=== PATIENT | female | born 1975 | race Caucasian/White ===

== ENCOUNTER 2023-06-28 11:02 | Emergency (ER) | payer SELFPAY ==
[2023-06-28 11:37] VITALS: BP 163/100; PULSE 98; RESP 16; TEMP 37.3; O2SAT 98; BMI 32.9
--- NOTE | 2023-06-28 11:39 | ED_ITS ---
HPI - General Adult General Chief complaint: Neck Pain/Injury Stated complaint: Neck pain Time Seen by Provider: 06/28/23 12:52 Source: patient, RN notes reviewed and old records reviewed Mode of arrival: ambulatory History of Present Illness HPI narrative: 47-year-old female with a past medical history of cervical spinal fusion presenting to the ED complaining of intermittent diffuse myalgias/shooting pain from head to toe x months. Describes patient as intermittent electrical shocks. Has been taking Tylenol and using THC without relief. States recently moved from [place] trying to establish care/insurance and PCPs in this area. Denies recent injury/trauma/fall, headache, weakness, numbness, incontinence/retention, CP/SOB, abdominal pain. Onset (ago): month(s) Related Data Allergies Allergy/AdvReac Type Severity Reaction Status Date / Time clindamycin Allergy Anaphylaxis Verified 06/28/23 11:36 erythromycin base Allergy Anaphylaxis Verified 06/28/23 11:36 morphine Allergy Anaphylaxis Verified 06/28/23 11:36 Penicillins Allergy Hives Verified 06/28/23 11:36 Review of Systems Review of Systems: Constitutional: No Fever, No Chills ENT/Mouth: No Ear Pain, No Nasal Congestion, No Sinus Pain, No Hoarseness, No sore throat, No Rhinorrhea, No Swallowing Difficulty Cardiovascular: No Chest Pain, No SOB Respiratory: No Cough, No Sputum, No Wheezing Gastrointestinal: No Nausea, No Vomiting, No Diarrhea, No Constipation, No Abdominal pain Genitourinary: No Dysuria, No Hematuria, No Urinary Incontinence/retention, No Flank Pain Musculoskeletal: No joint pain, + Myalgias, No Joint Swelling Skin: No Skin Lesions, No rash Neuro: No Weakness, No Numbness, + Paresthesias Yes all other systems are reviewed and are negative Constitutional: Constitutional: Reports as per HPI Neurologic: Denies Abnormal speech present [facility] Past Medical History Attestation statement: The following information was validated with the patient. Source: old records reviewed Social History Social History Advance Directives: No Physical Exam ED Vital Signs: Vital Signs - 24 hr 06/28/23 11:37 Temperature 99.2 F Pulse Rate 98 Respiratory Rate 16 Blood Pressure 163/100 H Pulse Oximetry 98 Oxygen Delivery Method Room Air BMI result Body Mass Index 32.9 Const General: cooperative, healthy appearing, no acute distress, alert and awake Orientation/consciousness: patient oriented x3 Limitations: no limitations HENMT Head: Yes normal to inspection and Yes atraumatic Ears: hearing grossly normal bilaterally General nose exam: Normal external nose present Face and sinus: Yes normal facial exam Throat: Yes posterior oropharynx normal, Yes tonsils normal and Yes uvula midline Eyes General: appearance normal, both eyes and all related structures Pupils: Equal, round and reactive pupils present EOM: EOMs intact bilaterally Neck Neck: Yes normal visual inspection, Yes no meningeal signs, No anterior neck swelling and No torticollis Resp Effort & Inspection: normal respiratory effort and no respiratory distress Auscultation: clear to auscultation bilaterally Cardio Rate: regular rate Heart sounds: S1 normal heart sound present and S2 normal heart sound present GI Inspection: Yes normal to inspection Palpation (GI): Soft to palpation, nontender, no guarding and not rigid General: Yes no CVA tenderness Back/Spine/Pelvis Other: No midline cervical/thoracic/lumbar spinous tenderness/step-off or deformity. + diffuse paraspinal/MSK cervical and back tenderness to palpation. No erythema/ecchymosis or rashes. Back: no CVA tenderness Skin Rashes: no rashes Wounds: no wounds Neuro Other: Strength intact throughout. No saddle anesthesia. Sensation intact to light touch. Neurovascular intact distally General: patient oriented x3, gait normal, tone normal, moves all extremities, no meningeal signs, no focal motor deficits and CN's II-XI intact bilaterally Cranial nerves: Yes CN's II-XII intact bilaterally and Yes Equal, round and reactive pupils present Cognition (Neuro): normal cognition Speech: No Abnormal speech present Gait exam (Neuro): Normal gait present Motor exam (neuro): 5/5 motor strength present throughout Extrem General: Yes normal to inspection Course Course Course Narrative: This is an RME: Additional HPI, ROS, PE not included below will be deferred to primary provider. This is a [id number], hx of pituitary tumor and gastric bypass, presenting to the emergency department with complaints of shooting pain up into head and down her entire back. She has had these symptoms for the last 3 weeks but over the last several days the symptoms have worsened. Patient has exquisite TTP throughout entire neck and spine. She is otherwise feeling well, no headaches, fevers, chills. Has been taking tylenol without any relief. Plan: Basic labs, further eval in main ER -1440--leukopenic and anemic > patient reports baseline anemia has never required transfusion however has been discussed in the past. Denies any active bleeding. States used to give herself injections for this. -patient became very upset when talking about results, requesting to see MD due to continued pain. Case discussed with Dr. Medrano who spoke with and evaluated patient, patient stated nothing works her and she is allergic to everything except for Dilaudid. Dr. Medrano agreeable to order 2 mg of p.o. Dilaudid in the emergency department, however will not be discharging patient with pain prescription. Will refer to pain management and neurology as previously discussed. Patient is still not happy with plan. Pain x months not an emeka cation for opiate use which was discussed Results discussed with patient including worrisome signs and symptoms and strict return precautions, and when to return to the emergency department. They ve rbalized understanding and feel safe for discharge at this time. Medications Administered Discontinued Medications Generic Name Dose Route Start Last Admin Trade Name Freq PRN Reason Stop Dose Admin Cyclobenzaprine HCl 10 mg 06/28/23 13:38 06/28/23 13:50 Cyclobenzaprine Hcl 10 Mg Tablet PO 06/28/23 13:39 10 mg ONCE ONE Administration Hydromorphone HCl 2 mg 06/28/23 14:57 06/28/23 15:08 Hydromorphone Hcl 2 Mg Tablet PO 06/28/23 14:58 2 mg ONCE ONE Administration Ketorolac Tromethamine 30 mg 06/28/23 13:38 06/28/23 13:51 Ketorolac Tromethamine 30 Mg/Ml Vial IM 06/28/23 13:39 30 mg ONCE ONE Administration Medical Decision Making Medical Decision Making MDM Narrative: 47-year-old female with a past medical history of cervical spinal fusion presenting to the ED complaining of intermittent diffuse myalgias/shooting pain from head to toe x months. On exam hypertensive, NAD, nontoxic appearing, no midline spinous tenderness through or red flag symptoms, ambulating with steady gait. No focal neuro deficits. No evidence of trauma. Concern for diffuse myalgias/paresthesia as vs MSK pain/strain vs neuropathy/radiculopathy. Unlikely ICH/CAH, meningitis/encephalitis, cauda equina/cord compression, epidural abscess. Rule metabolic abnormalities. Lower suspicion for MS Plan: Labs ordered in triage, pain control Please refer to course for remaining clinical decision making, interpretation of labs/imaging results, and discussions with consultants and/or family members. Differential Diagnosis Differential Diagnoses: The differential diagnosis associated with the presentation includes As above Admission/Observation Consideration of admission/observation: Escalation of care including admission/observation considered Lab Data MDM Lab Attestation statement: I reviewed the patient's lab results. 06/28/23 12:01 Labs: Lab Results 06/28/23 06/28/23 06/28/23 Range/Units 12:01 13:25 13:25 WBC 2.7 L (4.8-10.8) X10*3/uL RBC 4.29 (4.20-5.50) X10*6/uL Hgb 8.7 L (12.0-16.0) g/dl Hct 31.0 L (37.0-47.0) % MCV 72.3 L (80.0-98.0) fL MCH 20.3 L (27.0-33.0) pg MCHC 28.1 L (31.0-35.0) g/dl RDW 19.9 H (11.0-16.0) % Plt Count 383 (160-400) X10*3/uL MPV 9.8 (9.4-12.3) fL Immature Gran % (Auto) 0.4 (0.0-0.4) % Neut % (Auto) 61.6 (45-73) % Lymph % (Auto) 28.2 (20-40) % [place] % (Auto) 7.3 (2-11) % Eos % (Auto) 1.8 (0-4) % Baso % (Auto) 0.7 (0-2) % Lymph # (Auto) 0.8 L (1.2-4.9) X10*3/uL [place] # (Auto) 0.2 (0.1-1.2) X10*3/uL Eos # (Auto) 0.1 (0.0-0.4) X10*3/uL Baso # (Auto) 0.0 (0.0-0.2) X10*3/uL Abs Immat Gran (auto) 0.01 (0.00-0.03) X10*3/uL Absolute Neuts (auto) 1.7 L (2.0-8.3) x10*3/uL Absolute Nucleated RBC 0.000 (0.0-0.012) X10*3/uL Nucleated RBC % (auto) 0.0 (0.0-0.2) /100WBC ESR 7 (0-20) MM/HR Sodium 142 (135-145) mmol/L Potassium 3.7 (3.3-5.1) mmol/L Chloride 109 H (96-108) mmol/L Carbon Dioxide 25 (22-29) mmol/L Anion Gap 12 (12-20) BUN 9 (9-16) mg/dL Creatinine 0.70 (0.5-1.4) mg/dL Estim Creat Clear Calc 98.3 Estimated GFR > 60 Random Glucose 98 (60-115) mg/dL Calcium 9.2 (8.4-10.2) mg/dL Magnesium 2.1 (1.6-2.6) mg/dL Total Bilirubin 0.3 (0.0-1.0) mg/dL Direct Bilirubin 0.1 (0.0-0.5) mg/dL AST 27 (5-31) U/L ALT 22 (0-31) U/L Alkaline Phosphatase 108 (39-117) U/L Total Protein 6.6 (6.5-8.0) g/dL Albumin 4.1 (3.5-5.0) g/dL COVID-19 ([facility]) (Negative) COVID-19 Clin Com 06/28/23 Range/Units 14:28 WBC (4.8-10.8) X10*3/uL RBC (4.20-5.50) X10*6/uL Hgb (12.0-16.0) g/dl Hct (37.0-47.0) % MCV (80.0-98.0) fL MCH (27.0-33.0) pg MCHC (31.0-35.0) g/dl RDW (11.0-16.0) % Plt Count (160-400) X10*3/uL MPV (9.4-12.3) fL Immature Gran % (Auto) (0.0-0.4) % Neut % (Auto) (45-73) % Lymph % (Auto) (20-40) % [place] % (Auto) (2-11) % Eos % (Auto) (0-4) % Baso % (Auto) (0-2) % Lymph # (Auto) (1.2-4.9) X10*3/uL [place] # (Auto) (0.1-1.2) X10*3/uL Eos # (Auto) (0.0-0.4) X10*3/uL Baso # (Auto) (0.0-0.2) X10*3/uL Abs Immat Gran (auto) (0.00-0.03) X10*3/uL Absolute Neuts (auto) (2.0-8.3) x10*3/uL Absolute Nucleated RBC (0.0-0.012) X10*3/uL Nucleated RBC % (auto) (0.0-0.2) /100WBC ESR (0-20) MM/HR Sodium (135-145) mmol/L Potassium (3.3-5.1) mmol/L Chloride (96-108) mmol/L Carbon Dioxide (22-29) mmol/L Anion Gap (12-20) BUN (9-16) mg/dL Creatinine (0.5-1.4) mg/dL Estim Creat Clear Calc Estimated GFR Random Glucose (60-115) mg/dL Calcium (8.4-10.2) mg/dL Magnesium (1.6-2.6) mg/dL Total Bilirubin (0.0-1.0) mg/dL Direct Bilirubin (0.0-0.5) mg/dL AST (5-31) U/L ALT (0-31) U/L Alkaline Phosphatase (39-117) U/L Total Protein (6.5-8.0) g/dL Albumin (3.5-5.0) g/dL COVID-19 ([facility]) Negative (Negative) COVID-19 Clin Com See Note Radiology Impression Discussion of test interpretation with radiology: I have reviewed the radiologist's reading. External Record Review External record reviewed: Inpatient record, Office record, Outpatient record, Prior outpatient labs, Prior outpatient radiology, Primary care record and [facility] Tests considered The following testing was considered but not selected: As above Prescription Management I considered prescription management with: Pain Medication Social Determinants Patient?s care significantly limited by Social Determinants of Health including: Inadequate housing Discharge Plan Discharge Clinical Impression: Myalgia, Chronic anemia Patient Disposition: Home, Self-Care Instructions: Musculoskeletal Pain (ED), Anemia (ED) Additional Instructions: Your blood work is reassuring, you have chronic anemia. Your blood count was 8.7 / 31.0. He should consider taking iron supplements Your given a dose of Dilaudid in the emergency department Flexeril is a muscle relaxer, take at night as it makes you drowsy, do not drive, drink alcohol, or operate machinery while taking it Lidoderm patches are numbing patches, apply to painful area In addition take Tylenol at home. Do not exceed 4 g of Tylenol in 1 day YOU SHOULD FOLLOW-UP WITH [facility] If symptoms persist or worsen, pain becomes unbearable, you developed urinary retention or incontinence, or weakness return to the ED Referrals: [facility] [Provider Group] Gus Jain MD [Physician] - 5 days
--- NOTE | 2023-06-28 12:09 | MHC.EDTECH ---
Labs drawn and sent to lab
[2023-06-28 12:28] LABS: Alanine Aminotransferase 22 U/L (0-31); Albumin Level 4.1 g/dL (3.5-5.0); Alkaline Phosphatase 108 U/L (39-117); Anion Gap 12 (12-20); Aspartate Amino Transferase 27 U/L (5-31); Bilirubin Direct 0.1 mg/dL (0.0-0.5); Bilirubin Total 0.3 mg/dL (0.0-1.0); Blood Urea Nitrogen 9 mg/dL (9-16); Calcium 9.2 mg/dL (8.4-10.2); Carbon Dioxide 25 mmol/L (22-29); Chloride 109 mmol/L (96-108); Creatinine Clr Calc Pharmacy 98.3; Estimated Glomerular Filt Rate > 60; Glucose Random 98 mg/dL (60-115); Magnesium 2.1 mg/dL (1.6-2.6); Potassium 3.7 mmol/L (3.3-5.1); Sodium 142 mmol/L (135-145); Total Protein 6.6 g/dL (6.5-8.0)
[2023-06-28 13:36] LABS: MANUAL DIFF FLAG NO
[2023-06-28 13:40] LABS: Basophils Percent Auto 0.7 % (0-2); Eosinophils Absolute Auto 0.1 X10*3/uL (0.0-0.4); Eosinophils Percent Auto 1.8 % (0-4); Hemoglobin 8.7 g/dl (12.0-16.0); Imm Gran Abs Auto 0.01 X10*3/uL (0.00-0.03); Imm Gran Pct Auto 0.4 % (0.0-0.4); Lymphocytes Absolute Auto 0.8 X10*3/uL (1.2-4.9); Lymphocytes Percent Auto 28.2 % (20-40); Mean Corpuscular HGB Conc 28.1 g/dl (31.0-35.0); Mean Corpuscular Hemoglobin 20.3 pg (27.0-33.0); Mean Corpuscular Volume 72.3 fL (80.0-98.0); Mean Platelet Volume 9.8 fL (9.4-12.3); Monocytes Absolute Auto 0.2 X10*3/uL (0.1-1.2); Monocytes Percent Auto 7.3 % (2-11); Neutrophils Absolute Auto 1.7 x10*3/uL (2.0-8.3); Neutrophils Percent Auto 61.6 % (45-73); Platelet Count 383 X10*3/uL (160-400); Red Blood Count 4.29 X10*6/uL (4.20-5.50); Red Cell Distribution Width 19.9 % (11.0-16.0); White Blood Count 2.7 X10*3/uL (4.8-10.8)
[2023-06-28] MEDS: Cyclobenzaprine HCl 10 MG TABLET PO (13:50)
[2023-06-28] MEDS: Ketorolac Tromethamine 30 MG/ML VIAL IM (13:51)
[2023-06-28 14:33] LABS: Erythrocyte Sedimentation Rate 7 MM/HR (0-20)
[2023-06-28 14:51] LABS: COVID-19 Test Negative (Negative); IDNOW Serial# BCCEAD1C
[2023-06-28] MEDS: HYDROmorphone HCl 2 MG TABLET PO (15:08)
[2023-06-29 16:05] LABS: CRP High Sensitivity 0.4 mg/L
== END 2023-06-28 15:26 | disposition home or self-care (01) ==
PROVIDERS: Physician Assistant; Physician Assistant Medical; Emergency Provider Internal Medicine
DX: M54.2 Cervicalgia (principal); Z20.822 Contact with and (suspected) exposure to COVID-19; Z20.828 Contact with and (suspected) exposure to other viral communicable diseases; Z79.899 Other long term (current) drug therapy; Z98.84 Bariatric surgery status
CPT/HCPCS: 36415; 80048; 80076; 83735; 85025; 85652; 86141; 87635; 96372; 99283; 99284; J1885

== ENCOUNTER 2023-10-12 14:07 | Outpatient (REF) | payer OTHER, SELFPAY ==
--- NOTE | ~2023-10-12 | XR_ITS ---
EXAMINATION: XR CHEST 2 VIEW CLINICAL INFORMATION: Cough, shortness of breath COMPARISON: None TECHNIQUE: PA and lateral views of the chest obtained. FINDINGS: The lungs are clear. There are no pleural effusions. The cardiomediastinal silhouette is normal. Surgical clips are evident in the region of the esophagogastric junction. Rounded soft tissue is evident in the retrocardiac mediastinum, perhaps related to prior esophageal surgery. XR/XR chest 2V IMPRESSION: No acute cardiopulmonary disease.
[2023-10-12 16:07] LABS: MANUAL DIFF FLAG NO
[2023-10-12 16:13] LABS: Basophils Percent Auto 0.6 % (0-2); Eosinophils Absolute Auto 0.1 X10*3/uL (0.0-0.4); Eosinophils Percent Auto 2.5 % (0-4); Hemoglobin 8.7 g/dl (12.0-16.0); Imm Gran Abs Auto 0.01 X10*3/uL (0.00-0.03); Imm Gran Pct Auto 0.3 % (0.0-0.4); Lymphocytes Percent Auto 29.3 % (20-40); Mean Corpuscular HGB Conc 27.2 g/dl (31.0-35.0); Mean Corpuscular Hemoglobin 20.7 pg (27.0-33.0); Mean Corpuscular Volume 76.2 fL (80.0-98.0); Mean Platelet Volume 9.3 fL (9.4-12.3); Monocytes Absolute Auto 0.3 X10*3/uL (0.1-1.2); Monocytes Percent Auto 7.6 % (2-11); Neutrophils Absolute Auto 2.1 x10*3/uL (2.0-8.3); Neutrophils Percent Auto 59.7 % (45-73); Platelet Count 468 X10*3/uL (160-400); Red Cell Distribution Width 18.3 % (11.0-16.0); White Blood Count 3.6 X10*3/uL (4.8-10.8)
[2023-10-12 16:28] LABS: Acetaminophen LAB < 3 mcg/mL (<30)
[2023-10-12 16:30] LABS: Alanine Aminotransferase 23 U/L (0-31); Albumin Level 4.3 g/dL (3.5-5.0); Alkaline Phosphatase 111 U/L (39-117); Anion Gap 13 (12-20); Aspartate Amino Transferase 28 U/L (5-31); Bilirubin Total 0.3 mg/dL (0.0-1.0); Blood Urea Nitrogen 10 mg/dL (9-16); C Reactive Protein < 0.10 mg/dL (< or = 0.50); Calcium 9.5 mg/dL (8.4-10.2); Carbon Dioxide 26 mmol/L (22-29); Chloride 104 mmol/L (96-108); Cholesterol 172 mg/dL (<200); Estimated Glomerular Filt Rate > 60; Glucose Random 86 mg/dL (60-115); HDL Cholesterol 56 mg/dL (>40); Iron 22 mcg/dL (30-160); LDL Cholesterol Calculated 78 mg/dL (<100); Percent Iron Saturation 5 % (15-50); Sodium 139 mmol/L (135-145); Total Iron Binding Capacity 460 mcg/dL (228-428); Total Protein 7.3 g/dL (6.5-8.0); Triglycerides 194 mg/dL (<150); Unsaturated Iron Binding 438 ug/dL
[2023-10-12 16:49] LABS: Ferritin 6 ng/mL (10-250); Free T4 (Free Thyroxine) 0.77 ng/dL (0.71-1.85); Thyroid Stimulating Hormone 1.81 uIU/mL (0.32-4.0); Vitamin D 25-OH Total 9.4 ng/mL (>30)
[2023-10-12 16:55] LABS: Erythrocyte Sedimentation Rate 19 MM/HR (0-20)
[2023-10-12 17:01] LABS: Folate 6.9 ng/mL (> or = 4.0); Vitamin B12 242 pg/mL (200-900)
== END 2023-10-12 14:08 | disposition home or self-care (01) ==
LOC: HO.HMGCX 14:07
PROVIDERS: PCP Internal Medicine; Visit Provider Internal Medicine
DX: Z00.00 Encounter for general adult medical examination without abnormal findings (principal); R05.9 Cough, unspecified; R06.02 Shortness of breath; E78.5 Hyperlipidemia, unspecified; R53.83 Other fatigue
CPT/HCPCS: 36415; 71046; 80053; 80061; 80143; 82306; 82607; 82728; 82746; 83540; 84439; 84443; 85025; 85652; 86140